=== PATIENT | female | born 1990 | race Caucasian/White ===

== ENCOUNTER 2021-01-29 07:55 | Inpatient (IN) ==
[2021-01-29] MEDS ORDERED: Metoclopramide 10 MG/2 ML VIAL IVP PRN (08:37)
[2021-01-29] MEDS ORDERED: *HR* Nalbuphine 10 MG/ML AMPUL IV PRN (08:37)
[2021-01-29] MEDS ORDERED: Azithromycin 500 MG in 0.9 % Sodium Chloride 250 ML IVPB PRN (08:37)
[2021-01-29] MEDS ORDERED: Ondansetron 4 MG/2 ML VIAL IVP PRN ×2 (08:37→14:08)
[2021-01-29] MEDS ORDERED: Lidocaine 1% 20 ML MDV ID PRN (08:37)
[2021-01-29] MEDS ORDERED: Naloxone 0.4 MG/ML INJ IVP PRN (08:37)
[2021-01-29] MEDS ORDERED: Famotidine 20 MG/2 ML VIAL IVP PRN (08:37)
[2021-01-29] MEDS ORDERED: miSOPROStoL 25 MCG TABLET PO PRN (08:40)
[2021-01-29] MEDS ORDERED: Oxytocin 20 units/ LR 1000 mL 20 UNIT/1,000 ML BAG IVC SCH ×2 (08:45→20:52)
[2021-01-29 08:56] LABS: Basophils % 0.3 %; Eosinophils # 0.3 K/mcL (0.0-0.6); Eosinophils % 2.9 %; Hematocrit 36.5 % (35.3-44.9); Hemoglobin 12.4 g/dL (11.5-15.4); Immature Granulocytes % 0.7 % (0-4); Lymphocytes # 1.6 K/mcL (0.6-4.6); Lymphocytes % 15.8 %; Mean Corpuscular Hemoglobin 31.2 pg (28.0-33.3); Mean Corpuscular Volume 91.9 fL (83.0-100.0); Mean Platelet Volume 12.1 fL (9.4-12.4); Monocytes # 0.7 K/mcL (0.0-1.3); Monocytes % 7.1 %; Neutrophils # 7.6 K/mcL (1.6-8.9); Platelet Count 234 K/mcL (140-400); Red Blood Count 3.97 M/mcL (3.82-4.97); Red Cell Distribution Width 11.9 % (11.5-14.5); Segmented Neutrophils % 73.2 %; White Blood Count 10.3 K/mcL (4.3-11.1)
[2021-01-29 09:15] LABS: Alanine Aminotransferase 11 Units/L (7-52); Aspartate Amino Transferase 15 Units/L (13-39); Blood Urea Nitrogen 6 mg/dL (6-20); Lactate Dehydrogenase 184 Units/L (140-271)
[2021-01-29] MEDS: Ringers Solution, Lactated 1,000 ML IVC SCH ×2 (09:37→15:11)
[2021-01-29 09:50] LABS: Amphetamine Screen,Urine Negative ng/mL (Cutoff=1000); Barbiturate Screen,Urine Negative ng/mL (Cutoff=200); Benzodiazepines Screen,Urine Negative ng/mL (Cutoff=200); Cannabinoid Screen,Urine Negative ng/mL (Cutoff = 50); Cocaine Screen,Urine Negative ng/mL (Cutoff= 300); Opiate Screen,Urine Negative ng/mL (Cutoff=300); Phencyclidine Screen,Urine Negative ng/mL (Cutoff=25)
[2021-01-29] MEDS ORDERED: Bupivacaine-MPF 0.25% 10 ML VIAL EP ONE (09:53)
[2021-01-29] MEDS ORDERED: *HR* FentaNYL (PF) 100 MCG/2 ML VIAL EP ONE (09:53)
[2021-01-29] MEDS ORDERED: EPHEDrine 50 MG/ML VIAL IVP PRN ×2 (09:53→15:04)
[2021-01-29 09:59] LABS: BUN/Creatinine Ratio 13 (6-26); eGFR For African Americans > 60 (> 60); eGFR For Non-African Americans > 60 (> 60)
[2021-01-29] MEDS ORDERED: *HR* FentaNYL (PF) 250 MCG/5 ML VIAL ONE (09:59)
[2021-01-29 11:57] LABS: Creatinine,Urine 40 mg/dL; Protein/Creatinine Ratio,Urine 0.18 mg/mg (0.00-0.20)
[2021-01-29] MEDS ORDERED: Famotidine 20 MG/2 ML VIAL IVP ONE (14:09)
[2021-01-29] MEDS ORDERED: Epidural Premix (fent/bupiv) 110 ML EP ONE (14:45)
[2021-01-29] MEDS ORDERED: *HR* FentaNYL (PF) 100 MCG/2 ML VIAL ONE ×2 (15:10→18:47)
[2021-01-29] MEDS ORDERED: Epidural Premix (fent/bupiv) 110 ML EP SCH (15:15)
[2021-01-29] MEDS ORDERED: Ropivacaine/PF 0.2% 20 ML VIAL ONE (16:40)
[2021-01-29] MEDS ORDERED: Benzocaine/Menthol 56 GM AEROSOL SPRAY TP PRN (20:52)
[2021-01-29] MEDS ORDERED: Rho Immune Globulin 1,500 UNIT SYRINGE IM PRN (20:52)
[2021-01-29] MEDS ORDERED: Oxytocin 20 units/ LR 1000 mL 20 UNIT/1,000 ML BAG IVC ONE (20:52)
[2021-01-29] MEDS ORDERED: Acetaminophen 325 MG TABLET PO PRN (20:52)
[2021-01-29] MEDS ORDERED: Lanolin 7 G OINT...G. TP PRN (20:52)
[2021-01-29] MEDS ORDERED: Measles/Mumps/Rubella Vacc 0.5 ML VIAL SQ PRN (20:52)
[2021-01-29] MEDS ORDERED: Sennosides 8.6 MG TABLET PO PRN (20:52)
[2021-01-29] MEDS: Ibuprofen 600 MG TABLET PO PRN (21:35)
[2021-01-30] MEDS: Ibuprofen 600 MG TABLET PO PRN ×2 (06:08→14:07)
[2021-01-30 06:09] LABS: Basophils % 0.3 %; Eosinophils # 0.2 K/mcL (0.0-0.6); Eosinophils % 1.5 %; Hematocrit 31.2 % (35.3-44.9); Immature Granulocytes % 0.6 % (0-4); Lymphocytes # 1.8 K/mcL (0.6-4.6); Lymphocytes % 17.5 %; Mean Corpuscular HGB Conc 34.6 g/dL (31.6-35.5); Mean Corpuscular Hemoglobin 32.2 pg (28.0-33.3); Mean Corpuscular Volume 93.1 fL (83.0-100.0); Mean Platelet Volume 11.8 fL (9.4-12.4); Monocytes # 0.7 K/mcL (0.0-1.3); Monocytes % 6.5 %; Neutrophils # 7.7 K/mcL (1.6-8.9); Platelet Count 181 K/mcL (140-400); Red Blood Count 3.35 M/mcL (3.82-4.97); Red Cell Distribution Width 11.9 % (11.5-14.5); Segmented Neutrophils % 73.6 %; White Blood Count 10.5 K/mcL (4.3-11.1)
[2021-01-30 06:11] LABS: Hemoglobin 10.8 g/dL (11.5-15.4)
[2021-01-30 07:37] VITALS: O2SAT 98
[2021-01-30] MEDS ORDERED: Prenatal Vit/FA 1 EACH TABLET PO SCH (09:00)
[2021-01-30] MEDS ORDERED: NON-FORMULARY MEDICATION 1 EACH EACH (Prenatal Vitamin Tablet 1 TAB) PO SCH (09:00)
[2021-01-30 16:03] VITALS: BP 124/85; PULSE 81; TEMP 98.1
== END 2021-01-30 18:53 | disposition home or self-care (01) | DRG 807 ==
LOC: 1NENULAB 07:55 → 1NENUOBS 20:29
PROVIDERS: ADMIT Student in an Organized Health Care Education/Training Program; ATTEND Student in an Organized Health Care Education/Training Program